=== PATIENT | male | born 1955 | race Caucasian/White ===

== ENCOUNTER 2016-12-10 11:11 | Outpatient (CLI) | END 2016-12-10 11:12 | disposition home or self-care (01) | LOC: AMBL 11:11 | PROVIDERS: ATTEND Internal Medicine | DX: R07.9 Chest pain, unspecified (principal); R41.0 Disorientation, unspecified; R73.9 Hyperglycemia, unspecified; R40.2411 Glasgow coma scale score 13-15, in the field [EMT or ambulance]; I95.2 Hypotension due to drugs; T46.3X5A Adverse effect of coronary vasodilators, initial encounter; N19 Unspecified kidney failure; Z99.2 Dependence on renal dialysis ==

== ENCOUNTER 2018-11-10 10:46 | Outpatient (CLI) | END 2018-11-10 10:47 | disposition home or self-care (01) | LOC: NONPT 10:46 | PROVIDERS: ATTEND Internal Medicine Nephrology | DX: D64.9 Anemia, unspecified (principal) | CPT/HCPCS: 85014; 85018 ==

== ENCOUNTER 2018-11-21 10:29 | Outpatient (CLI) | END 2018-11-21 10:44 | disposition short-term general hospital (02) | LOC: AMBL 10:29 | PROVIDERS: ATTEND Emergency Medicine | DX: T82.838A Hemorrhage due to vascular prosthetic devices, implants and grafts, initial encounter (principal); N19 Unspecified kidney failure; Z99.2 Dependence on renal dialysis ==